=== PATIENT | female | born 1980 | race African-American/Black ===

== ENCOUNTER → 2016-09-09 | Outpatient (CLI) | payer OTHER ==
[2015-05-10 04:48] VITALS: BP 148/95
[~2016-09-09] MED LIST: AZIT250T6 PO; BENZ100C PO; [UNRECOGNIZED DRUG - REMARK]
--- NOTE | 2016-09-09 16:51 | CARD ---
APPROVED REPORT EXAM: Two-dimensional and M-mode echocardiogram with Doppler and color Doppler. Other Information Quality : Average Rhythm : NSR INDICATION Chest Pain Family history of ischemic heart disease 2D DIMENSIONS RVDd2.3 (2.9-3.5cm)Left Atrium(2D)3.4 (1.6-4.0cm) IVSd1.1 (0.7-1.1cm)Aortic Root(2D)2.5 (2.0-3.7cm) LVDd5.3 (3.9-5.9cm)LVOT Diameter2.0 (1.8-2.4cm) PWd1.0 (0.7-1.1cm)LVDs3.2 (2.5-4.0cm) FS (%) 40.2 %SV97.2 ml LVEF(%)70.4 (>50%) Aortic Valve AoV Peak Jean Paul.141.3cm/sAoV VTI27.7cm AO Peak GR.8.0mmHgLVOT Peak Jean Paul.81.7cm/s LVOT VTI 17.54cmAO Mean GR.4mmHg LYNN (VMAX)1.94nj4ODN (VTI)1.99cm2 Mitral Valve MV E Yitpqvdn927.3cm/sMV DECEL QETV730yf MV A Ggohxadx99.9cm/sMV E Mean Gr.2mmHg MV CEP18zwA/A Ratio2.4 MV A Revutptu460khAPT (PHT)4.16cm2 TDI E/Lateral E'7.5E/Medial E'11.3 Pulmonary Valve PV Peak Qcqgahpp91.3cm/sPV Peak Grad.3mmHg RVOT VTI23.3cm Tricuspid Valve TR P. Mplnjjlm322fi/sRAP DNBVSDGJ9sxSo TR Peak Gr.64hcXaRHUD02mjCe Pulmonary Vein S1 Lhgevvgm83.3cm/sD2 Kdeeybcb47.7cm/s LEFT VENTRICLE The left ventricle is normal size. There is normal left ventricular wall thickness. Left ventricle sy stolic function is normal. The Ejection Fraction is 65-70%. There is normal LV segmental wall motion. The left ventricular diastolic function and filling is normal for age. There is no ventricular septa l defect visualized. RIGHT VENTRICLE The right ventricle is normal size. The right ventricular systolic function is normal. ATRIA The left atrium size is normal. The right atrium size is normal. The interatrial septum is intact wit h no evidence for an atrial septal defect or patent foramen ovale as noted on 2-D or Doppler imaging. AORTIC VALVE The aortic valve is normal in structure and function. The aortic valve is trileaflet. Doppler and Col or Flow revealed no significant aortic regurgitation. There is no significant aortic valvular stenosi s. MITRAL VALVE The mitral valve leaflets are thickened. There is no mitral valve stenosis. Doppler and Color Flow re vealed no mitral valve regurgitation noted. TRICUSPID VALVE The tricuspid valve is normal in structure and function. Doppler and Color Flow revealed trace tricus pid regurgitation. The PA pressure was estimated at 18 mmHg. There is no tricuspid valve stenosis. PULMONIC VALVE The pulmonic valve is not well visualized. Doppler and Color Flow revealed no pulmonic valvular regur gitation. There is no pulmonic valvular stenosis. GREAT VESSELS The aortic root is normal in size. Normal pulmonary venous flow (Doppler). The IVC is normal in size and collapses >50% with inspiration. PERICARDIAL EFFUSION There is no evidence of significant pericardial effusion. Critical Notification Critical Value: No <Conclusion> Left ventricle systolic function is normal. The Ejection Fraction is 65-70%. There is normal LV segmental wall motion. Technically difficult study No valvular disease.
== END | disposition home or self-care (01) ==
LOC: ECHO 07:27
DX: R07.9 Chest pain, unspecified (principal); I07.1 Rheumatic tricuspid insufficiency; Z82.49 Family history of ischemic heart disease and other diseases of the circulatory system
CPT/HCPCS: 93306